=== PATIENT | male | born 1955 | race Caucasian/White ===

== ENCOUNTER 2025-03-31 14:54 | Outpatient (CLI) | payer OTHER, SELFPAY ==
--- NOTE | 2025-03-31 16:00 | CRLHL7_ITS ---
For Patients: As a result of the Century Cures Act, medical imaging exams and procedure reports are released immediately into your electronic medical record. You may view this report before your referring provider. If you have questions, please contact your health care provider. Indication: Peripheral arterial disease Comparison: None Technique: Routine duplex arterial examination of bilateral lower extremities including 2D and spectral analysis, and color Doppler imaging was performed. Findings: In the right lower extremity there are multiphasic waveforms in the common femoral artery, profunda femoral artery and proximal superficial femoral artery. There are monophasic waveforms in the popliteal artery, peroneal artery, anterior tibial artery, posterior tibial artery, and dorsalis pedis arteries. In the left lower extremity there are monophasic waveforms within the common femoral artery, profunda femoral artery, superficial femoral artery, and popliteal artery. Similarly, at the ankle, there are monophasic waveforms in the posterior tibial artery, anterior tibial artery, peroneal artery and dorsalis pedis arteries. Elevated velocity within right deep femoral artery measuring 258 cm/second. No elevated velocities within the left lower extremity runoff. Impression: Monophasic waveforms throughout the left lower extremity runoff suggesting inflow disease. 50-75 percent stenosis of the right deep femoral artery. Monophasic waveforms right femoral artery through the toes. CTA runoff may be beneficial for further evaluation. Dictated by Layton Hernandez MD @ 04/01/2025 12:09:55 PM (Electronically Signed)
--- OUTSIDE RECORDS SUMMARY | 2025-04-01 02:24 | XMS_ITS | Clinical Summary ---
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 10 Tablet 02/24/2023 12:35 PM CDT 3 Active Encounters Date Type Department Care Team Description 03/31/2025 3:15 PM CDT Ancillary Procedure [facility] & [address] [address] Arrived 03/31/2025 Travel from Last 3 Months Social History Tobacco Use Types Packs/Day Years Used Date Smoking Tobacco: Never Assessed Sex and Gender Information Value Date Recorded Sex Assigned at Not on file Legal Sex Male 7:04 AM CAFETERIA COOK Gender Identity Not on file Sexual Orientation Not on file Last Filed Vital Signs Vital Sign Reading Time Taken Comments Blood Pressure 152/74 02/24/2023 12:12 PM CDT Pulse 69 02/24/2023 12:12 PM CDT Temperature 36.7 C (98 F) 02/24/2023 10:13 AM CDT Respiratory Rate 16 02/24/2023 10:13 AM CDT Oxygen Saturation 99% 02/24/2023 12:12 PM CDT Inhaled Oxygen Concentration - - Weight 75.5 kg (166 lb 6.4 oz) 02/24/2023 10:13 AM CDT Height 180.3 cm (5' 11) 02/24/2023 10:13 AM CDT Body Mass Index 23.21 02/24/2023 10:13 AM CDT Plan of Treatment Health Maintenance Due Date Last Done Comments Tdap 02/24/1968 Depression screening for age 12+ 1969 BMI (ht and wt on same day) for age 18+ 1975 Hepatitis C screening for ag e 18-79 1975 Tetanus booster 1977 Colonoscopy through age 75 2002 Lipids for age 45-75 2002 Pneumococcal series for age 50+ (1 of 1 - PCV) 2007 Zoster (shingles) series for age 50+ (1 of 2) 2007 COVID-19 vaccine series (3 - season) 2025 10/23/2024, 08/30/2023 Influenza Vaccine (Season Ended) 2025 RSV vaccine for adults or (1 - 1-dose 75+ series) 02/24/2032 Hepatitis B series for 19+ Aged Out N o longer eligible based on patient's age to complete this topic Insurance [employer] Care Teams 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
== END 2025-03-31 14:55 | disposition home or self-care (01) ==
PROVIDERS: PCP Internal Medicine; Visit Provider Internal Medicine
DX: I73.9 Peripheral vascular disease, unspecified (principal); I70.201 Unspecified atherosclerosis of native arteries of extremities, right leg; R06.00 Dyspnea, unspecified
CPT/HCPCS: 93922; 93926

== ENCOUNTER 2025-04-02 12:36 | Outpatient (CLI) | payer OTHER, SELFPAY | END 2025-04-02 12:37 | disposition home or self-care (01) | LOC: RAD 12:37 | PROVIDERS: PCP Internal Medicine; Visit Provider Internal Medicine | DX: R06.00 Dyspnea, unspecified (principal) | CPT/HCPCS: 93306 ==